=== PATIENT | female | born 1950 | race Caucasian/White ===

== ENCOUNTER 2017-07-21 16:35 | Emergency (ER) | payer OTHER, MEDICARE ==
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
[2017-07-21 17:00] VITALS: BP 167/55
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
[2017-07-21] MEDS ORDERED: DIPH/PERTUSS(ACELL)/TETANUS VAC/PF 0.5 ML SYR (>=10YO) IM ONE (17:43)
[2017-07-21] MEDS ORDERED: CYCLOBENZAPRINE HCL 10 MG TABLET PO ONE (17:43)
[2017-07-21] MEDS ORDERED: IBUPROFEN 800 MG TABLET PO ONE (17:43)
== END 2017-07-21 20:54 | disposition home or self-care (01) ==
LOC: ER 16:35
DX: S39.012A Strain of muscle, fascia and tendon of lower back, initial encounter (principal); R42 Dizziness and giddiness; R10.9 Unspecified abdominal pain; F17.200 Nicotine dependence, unspecified, uncomplicated; V09.20XA Pedestrian injured in traffic accident involving unspecified motor vehicles, initial encounter; I10 Essential (primary) hypertension; Z90.49 Acquired absence of other specified parts of digestive tract; Z98.51 Tubal ligation status; Z23 Encounter for immunization; Z88.2 Allergy status to sulfonamides
CPT/HCPCS: 72110; 90471; 90715; 99284